=== PATIENT | male | born 2000 | race Hispanic/Latino ===

== ENCOUNTER 2025-06-11 08:43 | Emergency (ER) | payer OTHER ==
[~2025-06-11] VITALS: Ht 182.9 cm; Wt 90.7 kg
[2025-06-11 08:48] VITALS: BP 136/90; PULSE 84; RESP 19; TEMP 98.3
--- NOTE | 2025-06-11 09:01 | NUR ---
PATIENT IN HALLWAY B, PATIENT STATED HE IS HAVING SUICIDAL THOUGHTS WITH NO PLAN, PATIENT IS HOMELESS, SUICIDE PRECAUTIONS INITIATED SABINE 1 TO 1 SITTER AT BEDSIDE
[2025-06-11 09:06] LABS: IMMATURE GRANULOCYTE ABSOLUTE 0.05 K/uL (0-1); NUCLEATED RED BLOOD CELLS 0.0 % (0.0-0.19); PLATELET COUNT (AUTO) 197 K/uL (130-400); RED BLOOD CELL COUNT(AUTO) 4.81 MIL/uL (4.50-6.20); RED CELL DISTRIBUTION WIDTH 13.3 % (11.0-15.5); WHITE BLOOD COUNT (AUTO) 9.9 K/uL (4.8-10.8)
[2025-06-11 09:20] LABS: CREATININE 1.0 mg/dL (0.5-1.3); GLOMERULAR FILTR. RATE CALC 106 mL/min (>90); GLUCOSE,RANDOM 117 mg/dL (70-105); SODIUM SERUM 142 mmol/L (136-145); UREA NITROGEN, BLOOD 13 mg/dL (7-18)
[2025-06-11 09:25] LABS: ALCOHOL, BLOOD < 3 mg/dL (0-10); ASPARTATE AMINOTRANSFERASE 38 U/L (10-37); CREATINE KINASE, TOTAL 89 U/L (21-232); TOTAL PROTEIN, SERUM 7.8 g/dL (6.0-8.3)
[2025-06-11 09:25] LABS: APPEARANCE,URINE CLEAR (CLEAR); GLUCOSE, URINE (UA) NEGATIVE (NEGATIVE); LEUKOCYTE ESTERASE ,URINE NEGATIVE Leu/uL (NEGATIVE); NITRATE,URINE NEGATIVE (NEGATIVE); OCCULT BLOOD,URINE NEGATIVE (NEGATIVE)
[2025-06-11 09:28] LABS: ADD UA MICROSCOPIC NO
[2025-06-11 09:36] LABS: AMPHET/METH SCREEN,URINE NEGATIVE (NEGATIVE); BARBITURATE SCREEN, URINE NEGATIVE (NEGATIVE); CANNABINOID SCREEN,URINE NEGATIVE (NEGATIVE); COCAINE SCREEN,URINE NEGATIVE (NEGATIVE)
--- NOTE | 2025-06-11 09:38 | NUR ---
SPOKE TO [facility] HOTLINE CARDER BLANKETS, HE WILL CONTACT [employer] TO COME SCREEN PT.
--- NOTE | 2025-06-11 11:20 | NUR ---
PATIENT WALKED OUT OF ED THROUGH EMS ENTRANCE, 1 TO 1 SITTER AND MYSELF TRIED STOPPING HIM BUT HE WAS ALREADY ACROSS THE STREET THE PATIENT WAS FRUSTRATED AFTER SPEAKING TO IRMA GARCIA SCREENER, WE ASKED HIM TO WAIT A FEW MINUTES SO IRMA GATHER SOME PAPERWORK BUT PATIENT WAS FRUSTRATED AND WALKED OUT OF ED, PER IRMA FROM JOSE REYNOSO, PATIENT DOES NOT MEET CRITERIA FOR SUICIDE, PATIENT DID NOT HAVE IV PLACED.
--- NOTE | 2025-06-11 11:31 | ERN ---
ED Note History of Present Illness Stated Complaint: SUICIDAL IDEATION Chief Complaint: Suicidal Ideation Time Seen by MD: 08:47 Dictation: 24-year-old male history of depression presented by EMS for suicidal ideations and stress was picked up better local convenience store patient currently denies any plan. No pain Allergies: Coded Allergies: No Known Allergies (Unverified Allergy, Unknown, 06/11/25) Past Medical History Past Medical History: Anxiety, Depression Surgical History: None Review of System Dictation Constitutional: Negative for fever,chills, and weight loss Eyes: Negative for injury, pain,redness, and discharge ENT: Negative for injury,pain or swelling Cardiovascular: Negative for chest pain, palpitations, and edema Respiratory: Negative for shortness of breath, cough, and wheezing, Abdomen/GI: Negative for abdominal pain, nausea, vomiting, diarrhea, and constipation Back: Negative for injury and pain : Negative for injury, bleeding and discharge MS/Extremity: Negative for injury and deformity Skin: Negative for rash, and discoloration Neuro: Negative for headache, weakness, numbness, tingling, and seizure Psych: Per HPI Initial Vital Sign VS Vital Signs Date Time Temp Pulse Resp B/P (MAP) Pulse Ox O2 Delivery O2 Flow Rate FiO2 06/11/25 08:45 98.1 97 20 138/99 99 Room Air 0 06/11/25 08:48 21 Physical Exam Dictation General: awake, alert, NAD Head/Face: Normocephalic, atraumatic Eyes: PERRL, EOMI, vision at baseline ENT: oral cavity clear, TMs clear, no signs of infection Neck: Trachea midline, supple, no nuchal rigidity Cardiovascular: RRR, normal S1/S2, No MRGs, no JVD Respiratory: CTAB, no respiratory distress, No rales or wheezes Abdomen: Soft, non-tender, non-distended, normal bowel sounds, no guarding or rebound. Skin: Warm, dry, normal turgor, no rash MS/Extremity: Pulses equal, no cyanosis, neurovascular intact, FROM Neuro: COAx4, GCS 15, strength 5/5, CN 2-12 intact, normal cerebellar exam, normal gait, Psych:flat affect Results (Laboratory/Radiology) Laboratory/Radiology Laboratory Tests Test 06/11/25 09:02 06/11/25 09:17 White Blood Count 9.9 K/uL (4.8-10.8) Red Blood Count 4.81 MIL/uL (4.50-6.20) Hemoglobin 14.3 g/dL (14.0-18.0) Hematocrit 42.0 % (42-54) Mean Corpuscular Volume 87.3 fL (79-99) Mean Corpuscular Hemoglobin 29.7 pg (27.0-33.0) Mean Corpuscular Hemoglobin Concent 34.0 g/dL (32.0-36.0) Red Cell Distribution Width 13.3 % (11.0-15.5) Platelet Count 197 K/uL (130-400) Mean Platelet Volume 9.9 fL (7.5-10.5) Immature Granulocyte % (Auto) 0.5 % (0-1) Neutrophils (%) (Auto) 82.1 % (40.0-77.0) H Lymphocytes (%) (Auto) 10.3 % (21.0-51.0) L Monocytes (%) (Auto) 5.9 % (3.0-13.0) Eosinophils (%) (Auto) 1.0 % (0.0-8.0) Basophils (%) (Auto) 0.2 % (0.0-5.0) Neutrophils # (Auto) 8.2 K/uL (1.8-7.7) H Lymphocytes # (Auto) 1.0 K/uL (1.0-4.8) Monocytes # (Auto) 0.6 K/uL (0.1-1.0) Eosinophils # (Auto) 0.10 K/uL (0.00-0.70) Basophils # (Auto) 0.02 K/uL (0.00-0.20) Absolute Immature Granulocyte (auto 0.05 K/uL (0-1) Nucleated Red Blood Cells 0.0 % (0.0-0.19) Sodium Level 142 mmol/L (136-145) Potassium Level 3.7 mmol/L (3.5-5.1) Chloride Level 104 mmol/L (101-111) Carbon Dioxide Level 29 mmol/L (21-32) Blood Urea Nitrogen 13 mg/dL (7-18) Creatinine 1.0 mg/dL (0.5-1.3) Glomerular Filtration Rate Calc 106 mL/min (>90) Random Glucose 117 mg/dL (70-105) H Total Calcium 9.0 mg/dL (8.5-10.1) Total Bilirubin 0.3 mg/dL (0.2-1.0) Direct Bilirubin 0.1 mg/dL (0.0-0.3) Aspartate Amino Transf (AST/SGOT) 38 U/L (10-37) H Alanine Aminotransferase (ALT/SGPT) 51 U/L (12-78) Alkaline Phosphatase 81 U/L (50-136) Total Creatine Kinase 89 U/L (21-232) Total Protein 7.8 g/dL (6.0-8.3) Albumin 3.9 g/dL (3.5-5.0) Salicylates Level < 2.8 mg/dL (2.8-20.0) L Acetaminophen Level < 1 mcg/mL (10-29) L Serum Alcohol < 3 mg/dL (0-10) Urine Color LIGHT-YELLOW (YELLOW) Urine Appearance CLEAR (CLEAR) Urine pH 6.0 (5.0-8.0) Urine Specific Severance 1.010 (1.001-1.031) Urine Protein NEGATIVE mg/dL (NEGATIVE) Urine Glucose (UA) NEGATIVE mg/dL (NEGATIVE) Urine Ketones NEGATIVE mg/dL (NEGATIVE) Urine Occult Blood NEGATIVE (NEGATIVE) Urine Nitrate NEGATIVE (NEGATIVE) Urine Bilirubin NEGATIVE mg/dL (NEGATIVE) Urine Urobilinogen 0.2 mg/dL (0.2-1.0) Urine Leukocyte Esterase NEGATIVE Adi/uL Urine Opiates Screen NEGATIVE (NEGATIVE) Urine Barbiturates Screen NEGATIVE (NEGATIVE) Urine Phencyclidine Screen NEGATIVE (NEGATIVE) Urine Amphetamines Screen NEGATIVE (NEGATIVE) Urine Benzodiazepines Screen NEGATIVE (NEGATIVE) Urine Cocaine Screen NEGATIVE (NEGATIVE) Urine Marijuana (THC) Screen NEGATIVE (NEGATIVE) Labs Reviewed?: Yes ED Course ED Course Orders Procedure Category Date Status Time Basic Metabolic Panel LAB 06/11/25 Complete 08:47 Cbc With Differential LAB 06/11/25 Complete 08:47 Hepatic Function Panel LAB 06/11/25 Complete 08:47 Drug Screen Urine LAB 06/11/25 Complete 08:47 Creatine Kinase, Total LAB 06/11/25 Complete 08:47 Alcohol, Blood LAB 06/11/25 Complete 08:47 Urinalysis Profile LAB 06/11/25 Complete 08:47 Salicylate LAB 06/11/25 Complete 08:47 Acetaminophen LAB 06/11/25 Complete 08:47 Vital Signs Date Time Temp Pulse Resp B/P (MAP) Pulse Ox O2 Delivery O2 Flow Rate FiO2 06/11/25 08:48 98.2 84 19 136/90 Room Air* 0 21 06/11/25 08:45 98.1 97 20 138/99 99 Room Air 0 Medical Decision Making MDM MDM: Differential diagnosis: Rationale: Tests considered and ordered secondary to shared decision making include: Previous outside records reviewed: Old ER visits. Risk of complication and/or morbidity or mortality of patient management: None Medications-Per medication reconciliation Need for hospitalization: Patient does not meet criteria for hospitalization. Need for emergency major/minor surgery: No There are no social concerns with this patient. Prescription drug management Prescriptions will include symptomatic care Patient's prior external medical records from other ER visits were reviewed by me as indicated. Prior testing and results from previous visits were reviewed. Prior tests were taken into account with medical decision making and resource utilization, independent historian/historians were used to obtain complete medical history. I independently interpreted the test that were performed, results were reviewed by me and considered findings on radiology if ordered. Medical management and examination interpretation discussions were had by me with other qualified healthcare professionals as indicated for the patient's care. 24-year-old male presenting to emergency department with suicidal ideations no plan, medically cleared stable vital signs tropical saw and evaluated patient at bedside and reports that he does not meet criteria stable for discharge with safety plan DX & DISP Disposition: Discharge Departure Impression: Primary Impression: Depression Condition: Stable Referrals: SELF,REFERRAL (PCP) JESUS MANUEL VAZQUEZ MD Jun 11, 2025 11:31
== END 2025-06-11 12:00 | disposition home or self-care (01) ==
LOC: EDH 08:43
DX: F32.A Depression, unspecified (principal); F41.9 Anxiety disorder, unspecified
CPT/HCPCS: 99283; 99282; 82550; 80076; 80048; 80305; 85025; 81003; 36415; G0481

== ENCOUNTER 2025-06-11 19:50 | Emergency (ER) | payer OTHER ==
[~2025-06-11] VITALS: Ht 182.9 cm; Wt 78.0 kg
[2025-06-11 20:07] VITALS: BP 139/70; PULSE 84; RESP 20; TEMP 98.6
--- NOTE | 2025-06-11 20:11 | NUR ---
JOSE SCREENER MACY IN ED, INFORMED HER OF PATIENT HERE FOR SI, STATED HE HAD ALREADY BEEN SCREENED AT [facility] AT 17:30 AND DID NOT MEET CRITERIA AT THIS TIME. ASKED MACY IF CALL STILL NEEDS TO BE MADE TO JOSE AND STATED NO SINCE PATIENT HAS ALREADY BEEN SCREENED WITHIN THE 24 HOUR PERIOD. MACY WILL BE FAXING OVER SCREENING FOR PATIENT CHART. ED PA MADE AWARE AT THIS TIME./OLYA
--- NOTE | 2025-06-11 20:57 | NUR ---
MACY FROM [facility] SPEAKING WITH PATIENT TO INFORM AGAIN THAT HE DID NOT MEET CRITERIA AND REFERALLS WERE SENT TO HIM. MACY PROVIDING MORE EDUCATION AND RESOURCES AT THIS TIME./OLYA
--- NOTE | 2025-06-11 21:06 | ERN ---
General Chief Complaint: Suicidal Ideation Stated Complaint: SUICIDAL IDEATIONS Time Seen by MD: 20:01 Time Seen by Midlevel: 20:01 Source: patient History of Present Illness Initial Comments 24-year-old male who presents to the emergency department due to suicide ideations. Patient denies a plan, or attempt. Patient was seen at [facility] this morning evaluated, fully screened and discharged due to not meeting criteria for inpatient psych. Patient denies significant past medical history. Allergies: Coded Allergies: No Known Allergies (Unverified Allergy, Unknown, 06/11/25) Past Medical History Past Medical History: No Pertinent History Past Surgical History: None ROS Dictation Constitutional: Negative for fever,chills, and weight loss Eyes: Negative for injury, pain,redness, and discharge ENT: Negative for injury,pain or swelling Cardiovascular: Negative for chest pain, palpitations, and edema Respiratory: Negative for shortness of breath, cough, and wheezing, Abdomen/GI: Negative for abdominal pain, nausea, vomiting, diarrhea, and constipation Back: Negative for injury and pain : Negative for painful urination, bleeding or discharge MS/Extremity: Negative for injury and deformity Skin: Negative for rash, and discoloration Neuro: Negative for headache, weakness, numbness, tingling, and seizure Psych: Positive for suicide ideation Negative for homicidal ideation, and hallucinations Physical Exam Physical Exam Dictation General: awake, alert, no acute distress Head/Face: Normocephalic, atraumatic Eyes: PERRL, EOMI, normal conjunctiva ENT: oral cavity clear, oral mucosa moist Neck: Supple, normal range of motion Cardiovascular: RRR, normal S1/S2 Respiratory: CTAB, no respiratory distress Abdomen: Soft, non-tender, non-distended, no guarding or rebound. Skin: Warm, dry, normal turgor, no rash MS/Extremity: Pulses equal, no cyanosis, neurovascular intact, FROM Neuro: COAx4, GCS 15, strength 5/5, CN 2-12 intact, normal cerebellar exam, normal gait Psych: Normal behavior, mood, and affect normal MDM MDM: Rationale: 24-year-old male who presents to the emergency department due to suicide ideations. Patient denies a plan, or attempt. Patient was seen at [facility] this morning evaluated, fully screened and discharged due to not meeting criteria for inpatient psych. Patient denies significant past medical history. The patient labs and results were faxed from [facility], and patient was rescreened by [facility]. Patient does not meet criteria for inpatient psychiatric admission. The patient is to follow up outpatient with [facility]. There are no social concerns with this patient. I independently interpreted the test that were performed, results were reviewed by me and considered findings on radiology if ordered. Medical management and examination interpretation discussions were had by me with other qualified healthcare professionals as indicated for the patient's care. ED Course Vital Signs Date Time Temp Pulse Resp B/P (MAP) Pulse Ox O2 Delivery O2 Flow Rate FiO2 06/11/25 20:07 98.6 84 20 139/70 98 Room Air DX & DISP Disposition: Discharge Departure Impression: Primary Impression: Suicidal ideation Condition: Stable Additional Instructions: Discharge home. Rest. Follow up with primary care in 24 hours. Return to the ER for any acute changes or worsening symptoms. If any medications were prescribed take as directed. Okay to continue home medications unless otherwise discussed during your visit in the emergency room today. Patient was also advised to follow-up with primary care physician in 1 to 2 days for continued monitoring. Follow up outpatient with [facility]. Referrals: SELF,REFERRAL (PCP) I performed the substantive portion of the visit. I have reviewed and personally made and approve the management plan that is documented in the notes by myself or the RICHARD. I acknowledge full responsibility for the patient's management plan. NUPUR SCOTT Jun 11, 2025 21:06
== END 2025-06-11 21:10 | disposition home or self-care (01) ==
LOC: EDH 19:50
DX: R45.851 Suicidal ideations (principal)
CPT/HCPCS: 99282

== ENCOUNTER 2025-06-19 11:33 | Emergency (ER) | payer OTHER ==
[~2025-06-19] VITALS: Ht 180.3 cm; Wt 81.6 kg
[2025-06-19 11:57] LABS: IMMATURE GRANULOCYTE ABSOLUTE 0.03 K/uL (0-1); NUCLEATED RED BLOOD CELLS 0.0 % (0.0-0.19); PLATELET COUNT (AUTO) 252 K/uL (130-400); RED BLOOD CELL COUNT(AUTO) 5.62 MIL/uL (4.50-6.20); RED CELL DISTRIBUTION WIDTH 12.7 % (11.0-15.5); WHITE BLOOD COUNT (AUTO) 8.4 K/uL (4.8-10.8)
[2025-06-19 12:05] LABS: CREATININE 0.9 mg/dL (0.5-1.3); GLOMERULAR FILTR. RATE CALC 121 mL/min (>90); GLUCOSE,RANDOM 119 mg/dL (70-105); SODIUM SERUM 138 mmol/L (136-145); UREA NITROGEN, BLOOD 17 mg/dL (7-18)
[2025-06-19 12:08] LABS: AMPHET/METH SCREEN,URINE NEGATIVE (NEGATIVE); BARBITURATE SCREEN, URINE NEGATIVE (NEGATIVE); CANNABINOID SCREEN,URINE NEGATIVE (NEGATIVE); COCAINE SCREEN,URINE NEGATIVE (NEGATIVE)
[2025-06-19 12:10] LABS: ALCOHOL, BLOOD < 3 mg/dL (0-10); CREATINE KINASE, TOTAL 146 U/L (21-232)
--- NOTE | 2025-06-19 12:11 | NUR ---
STATES HAS EPISODES OF INTERMITTENT SUICIDAL IDEATION WITHOUT A PLAN. AT THIS TIME DENIES THOUGHTS OR INTENTIONS OF SELF HARM. DENIES SUICIDAL IDEATION. VOICES ABUSE OF CRACK COCAINE- LAST USED 2 WEEKS AGO.
--- NOTE | 2025-06-19 12:22 | NUR ---
[facility] CONTACTED FOR SCREENER REQUEST.
--- NOTE | 2025-06-19 12:41 | NUR ---
[facility] SCREENER AT BEDSIDE
--- NOTE | 2025-06-19 13:29 | EKG ---
[facility] Test Date: 2025-06-19 Test Time: 12:05:13 Pat Name: LUPE KAY Department: ED Room: Gender: [employer]: uy6 : 2000 Requested By: TAY WILLSON Order Number: [id number] Reading MD: Deejay Irvin Measurements Intervals [place] Rate: 85 P: 36 CA: 136 QRS: 84 QRSD: 81 T: 54 QT: 356 QTc: 424 Interpretive Statements Sinus rhythm Ventricular bigeminy No previous ECG available for comparison Electronically Signed On 06-19-2025 19:00:44 CDT by Deejay Irvin Please click the below link to view image of tracing.
[2025-06-19 13:30] VITALS: BP 124/74; PULSE 88; RESP 18; TEMP 98.6; O2SAT 99
--- NOTE | 2025-06-19 13:53 | ERN ---
General Chief Complaint: Suicidal Ideation Stated Complaint: SI Time Seen by MD: 11:36 History of Present Illness Initial Comments 24-year-old male presents for suicidal ideation. 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 He reports that he is withdrawing from methamphetamine. He reports suicidal ideation without a plan. No auditory or visual hallucinations. He is very agitated. Denies alcohol abuse. He is requesting to get transferred to [facility] or [facility]. Allergies: Coded Allergies: No Known Allergies (Unverified Allergy, Unknown, 06/11/25) Past Medical History Past Medical History: No Pertinent History Past Surgical History: None Family History Family History: Negative Social History Social History: Drugs ROS Dictation CONSTITUTIONAL: No chills, no fever, no weakness, no diaphoresis, no malaise. HEAD/FACE: No signs of trauma. EENT: No eye pain, no blurred vision, no tearing, no double vision, no ear pain, no ear discharge, no nose pain, no nasal congestion, no throat pain, no throat swelling, no mouth pain. RESPIRATORY: No cough, no orthopnea, no SOB, no stridor, no wheezing. CARDIOVASCULAR: No chest pain, no edema, no palpitations, no syncope. GASTROINTESTINAL/ABDOMINAL: No abdominal pain, no constipation, no diarrhea, no nausea, no vomiting. GENITOURINARY: No abnormal discharge, no dysuria, no frequent urination, no hematuria. No complaints of pain in the genitals. MUSCULOSKELETAL: No back pain, no gout, no joint pain, no joint swelling, no muscle pain, no muscle stiffness, no neck pain. INTEGUMENTARY: No change in color, no change in hair/nails, no dryness, no lesion, no lumps, no rash. NEUROLOGICAL/PSYCH: No anxiety, not depressed, no emotional problem, no headache, no numbness, no pre-existing deficit, no history of seizures, no tremors, no weakness. HEMATOLOGIC/LYMPHATIC: Not anemic, no history of blood clots, no apparent bleeding, no bruising, glands not swollen. All Systems Negative, Except as Noted. Physical Exam Physical Exam Dictation VITAL SIGNS: Reviewed. GENERAL APPEARANCE: Alert, oriented x3, no acute distress, obese. HEAD AND FACE: Non-traumatic. EYES: PERRL, pink conjunctivas, eyelid no trauma, anterior chamber clear. EARS: Pinnas intact and no signs of trauma or erythema. Ear canals clear and no discharge. TMs no erythema. NOSE: No discharge, no bleeding. OROPHARYNX: Mouth normal, teeth no caries, tongue pink. Pharynx clear, no erythema. Tonsils no exudates, no abscesses noted. Mucous membrane moist. NECK: Supple, non-tender, no thyromegaly, no masses, no JVD, no bruits. BREAST: Deferred. CHEST: No tenderness, no crepitus, no paradoxical movement, no retractions. LUNGS: Clear, well-ventilated, symmetric, no rales, no wheezing, no rhonchi, no stridor, good breath sounds bilaterally. HEART: Regular rate, regular rhythm, no murmur, no gallops. VASCULAR: No peripheral edema. ABDOMEN: Soft, positive bowel sounds, nondistended, no guarding, nontender, no rebound, no masses no hepatomegaly, no splenomegaly, no Bryan's sign, no hernias. RECTAL: Deferred. GENITAL: Deferred. NEUROLOGICAL: Normal speech, gross motor function intact, gross sensory function intact. MUSCULOSKELETAL: Neck nontender, full range of motion, back nontender, full range of motion. EXTREMITIES: Nontender, full range of motion. SKIN: Color pink, dry, no turgor, no rash, no lacerations, no abrasions, no contusions. LYMPHATICS: Deferred. Results Laboratory and Microbiology Lab and Micro Result Laboratory Tests Test 06/19/25 11:45 06/19/25 11:53 White Blood Count 8.4 K/uL (4.8-10.8) Red Blood Count 5.62 MIL/uL (4.50-6.20) Hemoglobin 16.8 g/dL (14.0-18.0) Hematocrit 48.0 % (42-54) Mean Corpuscular Volume 85.4 fL (79-99) Mean Corpuscular Hemoglobin 29.9 pg (27.0-33.0) Mean Corpuscular Hemoglobin Concent 35.0 g/dL (32.0-36.0) Red Cell Distribution Width 12.7 % (11.0-15.5) Platelet Count 252 K/uL (130-400) Mean Platelet Volume 9.8 fL (7.5-10.5) Immature Granulocyte % (Auto) 0.4 % (0-1) Neutrophils (%) (Auto) 69.3 % (40.0-77.0) Lymphocytes (%) (Auto) 21.3 % (21.0-51.0) Monocytes (%) (Auto) 6.6 % (3.0-13.0) Eosinophils (%) (Auto) 1.9 % (0.0-8.0) Basophils (%) (Auto) 0.5 % (0.0-5.0) Neutrophils # (Auto) 5.8 K/uL (1.8-7.7) Lymphocytes # (Auto) 1.8 K/uL (1.0-4.8) Monocytes # (Auto) 0.6 K/uL (0.1-1.0) Eosinophils # (Auto) 0.16 K/uL (0.00-0.70) Basophils # (Auto) 0.04 K/uL (0.00-0.20) Absolute Immature Granulocyte (auto 0.03 K/uL (0-1) Nucleated Red Blood Cells 0.0 % (0.0-0.19) Sodium Level 138 mmol/L (136-145) Potassium Level 3.4 mmol/L (3.5-5.1) L Chloride Level 101 mmol/L (101-111) Carbon Dioxide Level 33 mmol/L (21-32) H Blood Urea Nitrogen 17 mg/dL (7-18) Creatinine 0.9 mg/dL (0.5-1.3) Glomerular Filtration Rate Calc 121 mL/min (>90) Random Glucose 119 mg/dL (70-105) H Total Calcium 9.8 mg/dL (8.5-10.1) Total Creatine Kinase 146 U/L (21-232) # Salicylates Level < 2.8 mg/dL (2.8-20.0) L Acetaminophen Level < 1 mcg/mL (10-29) L Serum Alcohol < 3 mg/dL (0-10) Urine Opiates Screen NEGATIVE (NEGATIVE) Urine Barbiturates Screen NEGATIVE (NEGATIVE) Urine Phencyclidine Screen NEGATIVE (NEGATIVE) Urine Amphetamines Screen NEGATIVE (NEGATIVE) Urine Benzodiazepines Screen POSITIVE (NEGATIVE) H Urine Cocaine Screen NEGATIVE (NEGATIVE) Urine Marijuana (THC) Screen NEGATIVE (NEGATIVE) MDM CC: Suicidal ideation and auditory hallucinations Historian: Patient Comorbidities: Drug abuse, mental health disease Limitations by social determinants: None Differential diagnosis: Roxann, drug abuse, other. Vital signs stable Clinical exam is unremarkable Labs (independently ordered and interpreted by me): Normal CBC, normal metabolic panel, normal salicylates, normal Tylenol, normal alcohol. Positive for benzodiazepines. EKG (independently interpreted by me): Normal sinus rhythm, rate 85, normal axis, good R-wave progression, intervals stable no STEMI. Independently interpreted by me. Patient medically cleared. Patient evaluated by [facility], not a candidate for inpatient admission. Plan will be to discharge. ED Course Orders Procedure Category Date Status Time Cbc With Differential LAB 06/19/25 Complete 11:36 Alcohol, Blood LAB 06/19/25 Complete 11:36 Salicylate LAB 06/19/25 Complete 11:36 Acetaminophen LAB 06/19/25 Complete 11:36 12 Lead Ekg Tracing- EKG 06/19/25 Complete Technical 11:36 Creatine Kinase, Total LAB 06/19/25 Complete 11:36 Basic Metabolic Panel LAB 06/19/25 Complete 11:36 Drug Screen Urine LAB 06/19/25 Complete 11:36 Olanzapine 10mg/Ml PHA 06/19/25 Complete 1ml Vial (Zyprexa 10m 12:00 Current Medications Medications (Trade) Dose Ordered Sig/Nitin Route PRN Reason Start Time Stop Time Status Last Admin Dose Admin Olanzapine (ZyPREXA 10MG/ML 1ML Vial) 5 mg ONCE ONCE IM 06/19/25 12:00 06/19/25 12:01 DC 06/19/25 11:59 Vital Signs Date Time Temp Pulse Resp B/P (MAP) Pulse Ox O2 Delivery O2 Flow Rate FiO2 06/19/25 13:30 98.6 88 18 124/74 99 Room Air* 0 21 06/19/25 11:49 98.6 92 18 127/88 99 DX & DISP Disposition: Discharge Departure Impression: Primary Impression: Drug abuse Condition: Stable Additional Instructions: Please follow up as an outpatient with behavioral health. Avoid recreational drug abuse. Referrals: SELF,REFERRAL (PCP) TAY WILLSON DO Jun 19, 2025 13:53
== END 2025-06-19 14:05 | disposition home or self-care (01) ==
LOC: EDH 11:33
DX: F15.10 Other stimulant abuse, uncomplicated (principal)
CPT/HCPCS: 99284; 82550; 80048; 80305; 85025; 36415; 96372; 93005; G0481; J3490